=== PATIENT | male | born 1980 | race Caucasian/White ===

== ENCOUNTER 2024-06-02 15:00 | Emergency (ER) | payer OTHER, SELFPAY ==
--- NOTE | ~2024-06-02 | XR_ITS ---
EXAMINATION: XR hand LT min 3V DATE: 06/02/2024 16:05 INDICATION: Left hand wound. Foreign body. TECHNIQUE: 3 views of left hand were obtained. COMPARISON: None. FINDINGS: Bone alignment is normal. No fracture. There is mild osteoarthritis of first carpometacarpa l joint. IMPRESSION: 1. No radiopaque foreign body. Reviewed, dictated and finalized at location A.
[2024-06-02 15:01] VITALS: BP 131/82; PULSE 93; RESP 18; TEMP 36.9; O2SAT 97
--- NOTE | 2024-06-02 15:56 | ED.WOUNDLAC ---
HPI - Wound/Laceration General Chief Complaint: Wound/Laceration Stated Complaint: infection in hand Time Seen by Provider: 06/02/24 15:05 Source: patient Mode of arrival: ambulatory Limitations: no limitations History of Present Illness HPI narrative: Patient is a 44-year-old male who presents the ED with concern for left hand infection. Patient reports he sustained a laceration to his left dorsal hand on Friday from a chain saw blade that was not running. He saw his primary care doctor yesterday, was started on Bactrim, Rx'd Silvadene cream, and had his tetanus status updated. Patient then woke up this morning with a temperature of 103? F. he took Tylenol for his symptoms. He did report feeling chilled and having body aches at that time. His then referred him to the ED to r/o sepsis. Patient states he feels improved currently. Denies any other symptoms, denies nausea, vomiting, diarrhea, cough or cold symptoms. Related Data Allergies Allergy/AdvReac Type Severity Reaction Status Date / Time No Known Allergies Allergy Verified 06/02/24 15:00 Review of Systems Review of Systems: CONSTITUTIONAL: Denies fever, chills, or sweats. MUSCULOSKELETAL: See HPI. NEUROLOGIC: Denies headache, dizziness, numbness, or weakness. All systems reviewed & are unremarkable except as noted in HPI and below Exam Narrative: GENERAL: Well appearing, well-nourished, non-toxic, in no acute distress. HEAD: Normocephalic, atraumatic. RESPIRATORY: Airway patent, respirations nonlabored. CARDIOVASCULAR: Regular rate and rhythm. Radial pulses intact. MUSCULOSKELETAL: Moves all extremities. No gross deformities. SKIN: Warm, dry, normal color. 2 linear lacerations to L dorsal hand over space between 1st and 2nd metacarpals. No bleeding or drainage, minimal surrounding erythema. No warmth. Sensation intact. NEURO: A&O X3. Speech clear. Cranial nerves II-XII grossly intact. Steady gait. No ataxic movements. PSYCHIATRIC: Appropriate mood and affect. Normal interaction. Course Vital Signs Vital signs: Vital Signs Temperature 98.5 F 06/02/24 15:01 Pulse Rate 93 06/02/24 15:01 Respiratory Rate 18 06/02/24 15:01 Blood Pressure 131/82 06/02/24 15:01 Pulse Oximetry 97 06/02/24 15:01 Oxygen Delivery Room Air 06/02/24 15:01 Temperature 98.5 F 06/02/24 15:01 Pulse Rate 93 06/02/24 15:01 Respiratory Rate 18 06/02/24 15:01 Blood Pressure 131/82 06/02/24 15:01 Pulse Oximetry 97 06/02/24 15:01 Oxygen Delivery Room Air 06/02/24 15:01 MDM - Wound/Laceration MDM Narrative Medical decision making narrative: patient presented to ED with concern for left hand infection, status post laceration sustained on Friday, reportedly had fever this morning. Vital signs are stable upon here. Patient is afebrile here. Patient denies any other infectious type symptoms. Viral swabs negative. Basic laboratory studies reassuring, no leukocytosis, lactic acid WNL, mild elevation of CRP but ESR WNL. No evidence of sepsis at this time. X-ray of left hand without foreign body or fracture. Feel patient is safe for d/c home. Discussed possibility of immunization inflammatory reaction causing fever today. Patient did have a his tetanus status updated yesterday. I do not have concern for significant hand infection at this time to suggest need for further labs/ imaging /admission/IV antibiotics. Will change antibiotics to Keflex to cover for more basic cellulitis, will also prescribe bacitracin antibiotic ointment. Advised patient to follow-up with his primary care doctor for continued evaluation. Patient was given strict return precautions. He agrees w/ plan. D/C in stable condition. Medical Records Attestation: I reviewed the patient's medical records. Lab Data Attestation: I reviewed the patient's lab results. 06/02/24 15:53 06/02/24 15:53 Labs: Lab Results 06/02/24 Range/Units 1
[2024-06-02 16:02] LABS: Basophils Percent Auto 0.4 % (0.2-1.2); Hematocrit 48.7 % (42.0-52.0); Hemoglobin 17.3 g/dL (14.0-18.0); Immature Granulocyte Absolute 0.03 K/mm3 (0.00-0.031); Immature Granulocyte Percent A 0.4 % (0-0.5); Lymphocytes Absolute Auto 0.18 K/mm3 (0.9-3.2); Lymphocytes Percent Auto 2.7 % (18.3-44.2); Mean Corpuscular HGB Conc 35.5 g/dl (32-36); Mean Corpuscular Hemoglobin 31.5 pg (26-34); Mean Corpuscular Volume 88.7 fl (80-100); Mean Platelet Volume 9.3 fl (7.4-10.4); Monocytes Absolute Auto 0.4 K/mm3 (0.1-0.6); Monocytes Percent Auto 5.3 % (2.6-8.5); Neutrophils Absolute Auto 6.1 K/mm3 (1.3-6.7); Neutrophils Percent Auto 91.2 % (45.5-73.1); Platelet Count Result 146 k/mm3 (150-375); Red Blood Count 5.49 M/mm3 (4.6-6.20); Red Cell Distribution Width 11.9 % (11.5-14.5); White Blood Count 6.7 K/mm3 (4.5-10.0)
[2024-06-02 16:14] LABS: Lactic Acid Reflex 1.2 mmol/L (0.7-2.0)
[2024-06-02 16:17] LABS: Anion Gap 13 mmol/L (4-12); Blood Urea Nitrogen 15 mg/dL (9-20); CRP 6.1 mg/dL (<1.0); Carbon Dioxide 23 mmol/L (22-30); Chloride 101 mmol/L (98-107); Estimated CRCL calculation 101 ml/min; Estimated Glomerular Filt Rate > 60; Glucose 109 mg/dL (65-110); Potassium 3.8 mmol/L (3.4-5.0); Sodium 137 mmol/L (137-145)
[2024-06-02 16:34] LABS: Erythrocyte Sedimentation Rate 8 mm/hr (0-20)
[2024-06-02 16:40] LABS: Influenza A QL RT-PCR Negative (Negative); Influenza B QL RT-PCR Negative (Negative); RSV RNA, RT-PCR Negative (Negative); SARS-CoV-2 RNA PCR Negative (Negative)
== END 2024-06-02 17:16 | disposition home or self-care (01) ==
PROVIDERS: Emergency Provider Physician Assistant; PCP Family Medicine
DX: R50.83 Postvaccination fever (principal); T50.A95A Adverse effect of other bacterial vaccines, initial encounter; S61.412A Laceration without foreign body of left hand, initial encounter; Z20.822 Contact with and (suspected) exposure to COVID-19; W29.3XXA Contact with powered garden and outdoor hand tools and machinery, initial encounter
CPT/HCPCS: 36415; 73130; 80048; 83605; 85025; 85652; 86140; 87637; 99283